=== PATIENT | male | born 1995 | race Caucasian/White ===

== ENCOUNTER 2019-09-04 07:40 | Emergency (ER) | payer MEDICAID ==
[2019-09-04 07:55] VITALS: BP 129/77
[2019-09-04] MEDS ORDERED: TETRACAINE HCL 0.5% OPH SOLN 4 ML OS ONE (08:32)
--- NOTE | 2019-09-04 08:33 | ER Document Report ---
HPI - HPI Patient complains to provider of: Eye injury Time Seen by Provider: 09/04/19 08:24 Onset/Duration: Persistent Quality of pain: Burning Pain Level: 3 Context: Patient reports using a wood vault installer 4 days ago and having a piece of wood fly into his left eye. Patient complains of mild blurred vision due to frequent tearing. Patient reports light sensitivity. Patient does not wear glasses or contact lenses. Associated Symptoms: Other - Left eye injury Exacerbated by: Other - Light Relieved by: Denies Similar symptoms previously: No Recently seen / treated by doctor: No - ROS ROS below otherwise negative: Yes Systems Reviewed and Negative: Yes All other systems reviewed and negative - CONSTITUTIONAL Constitutional: DENIES: Fever, Chills - EENT EENT: REPORTS: Eye problems - NEURO Neurology: DENIES: Headache - MUSCULOSKELETAL Musculoskeletal: DENIES: Extremity pain - DERM Skin Color: Normal Skin Problems: None Past Medical History - General Information source: Patient - Social History Smoking Status: Current Every Day Smoker Frequency of alcohol use: None Drug Abuse: None Occupation: Tree cutting Family History: Reviewed & Not Pertinent Patient has homicidal ideation: No Pulmonary Medical History: Reports: Hx Asthma Surgical Hx: Negative Vertical Provider Document - CONSTITUTIONAL Agree With Documented VS: Yes Exam Limitations: No Limitations General Appearance: WD/WN, No Apparent Distress - HEENT HEENT: Atraumatic, Normocephalic Notes: Patient with a 2 mm corneal abrasion to the left eye at the 6 o'clock position, negative Michelle test, no corneal ulcer, no visible foreign body - NECK Neck: Normal Inspection - RESPIRATORY Respiratory: Breath Sounds Normal, No Respiratory Distress - CARDIOVASCULAR Cardiovascular: Regular Rate, Regular Rhythm - MUSCULOSKELETAL/EXTREMETIES Musculoskeletal/Extremeties: MAEW - NEURO Level of Consciousness: Awake, Alert, Appropriate Motor/Sensory: No Motor Deficit - DERM Integumentary: Warm, Dry, No Rash Course - Vital Signs Vital signs: Temp Pulse Resp BP Pulse Ox 97.7 F 66 16 129/77 H 100 09/04/19 07:44 09/04/19 07:44 09/04/19 07:44 09/04/19 07:44 09/04/19 07:44 Procedures - Eye Procedure Left Fluorescein applied: Left Slit lamp used: Yes Eyes picture: 1 - Corneal abrasion Discharge - Discharge Clinical Impression: Corneal abrasion, left Qualifiers: Encounter type: initial encounter Qualified Code(s): S05.02XA - Injury of conjunctiva and corneal abrasion without foreign body, left eye, initial encounter Condition: Stable Disposition: HOME, SELF-CARE Instructions: Corneal Abrasion ([facility]) Additional Instructions: Return immediately for any new or worsening symptoms Followup with plaster caster, call today to make a follow-up appointment Wear protective eyewear when using a wood vault installer Prescriptions: Erythromycin Base [E-Mycin 0.5% Oph Ointment 3.5 gm] 1 applic OS QID #1 tube Forms: Return to Work Referrals: CHERELLE ALONSO DO [Primary Care Provider] - Follow up as needed [facility] [Provider Group] - Follow up as needed [facility] [Provider Group] - Follow up as needed
== END 2019-09-04 09:50 | disposition home or self-care (01) ==
LOC: ER 07:40
DX: S05.02XA Injury of conjunctiva and corneal abrasion without foreign body, left eye, initial encounter (principal); W20.8XXA Other cause of strike by thrown, projected or falling object, initial encounter; Y93.89 Activity, other specified; F17.200 Nicotine dependence, unspecified, uncomplicated; J45.909 Unspecified asthma, uncomplicated
CPT/HCPCS: 99283; J3490